=== PATIENT | female | born 1970 | race Caucasian/White ===

== ENCOUNTER 2021-05-15 22:36 | Observation (INO) | payer MEDICARE ==
[~2021-05-15] VITALS: Ht 170.2 cm; Wt 51.9 kg
--- NOTE | 2021-05-15 23:14 | ED.ADGEN ---
General Adult EDM: Chief Complaint: ALTERED MENTAL STATUS HPI: HPI: Patient is a 50 year old female brought in by EMS. 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 Patient just arrived from [place] over the last 3 days. History is severely limited by patient's recollection. Patient has a history of paranoia, TBI, and has her medications with her. Patient denies any SI, HI, or hallucinations. Patient has had episodes like this in the past but not for quite a while. She denies any drug or alcohol use Review of Systems: Review of Systems: All other systems within normal limits except for as noted in the HPI Allergies: Allergies: Allergies Coded Allergies Type Severity Reaction Last Updated Verified No Known Drug Allergies 05/15/21 No Physical Exam: PE: Constitutional: Well developed, well nourished, no acute distress, non-toxic appearance. [] HENT: Normocephalic, atraumatic, bilateral external ears normal, nose normal. [] Eyes: PERRLA, conjunctiva normal, no discharge. [] Neck: No rigidity, supple, no stridor. [] Cardiovascular: Regular rate and rhythm, brisk cap refill [] Lungs & Thorax: Non labored symmetric respirations, no tachypnea or respiratory distress [] Abdomen: Soft, nondistended. Skin: Warm, dry, no erythema, no rash. [] Back: Unremarkable Extremities: No deformities, range of motion grossly intact, no lower extremity edema [] Neurologic: Alert and oriented X 3, no focal deficits noted. [] Psychologic: Normal speech pattern, confused, somber affect [] Current Patient Data: Labs: Laboratory Tests Test 05/15/21 23:05 05/15/21 23:56 05/16/21 00:11 White Blood Count 5.9 x10^3/uL (4.0-11.0) Red Blood Count 4.25 x10^6/uL (3.50-5.40) Hemoglobin 13.5 g/dL (12.0-15.5) Hematocrit 39.9 % (36.0-47.0) Mean Corpuscular Volume 94 fL (79-100) Mean Corpuscular Hemoglobin 32 pg (25-35) Mean Corpuscular Hemoglobin Concent 34 g/dL (31-37) Red Cell Distribution Width 13.0 % (11.5-14.5) Platelet Count 215 x10^3/uL (140-400) Neutrophils (%) (Auto) 75 % (31-73) H Lymphocytes (%) (Auto) 18 % (24-48) L Monocytes (%) (Auto) 7 % (0-9) Eosinophils (%) (Auto) 1 % (0-3) Basophils (%) (Auto) 0 % (0-3) Neutrophils # (Auto) 4.4 x10^3/uL (1.8-7.7) Lymphocytes # (Auto) 1.0 x10^3/uL (1.0-4.8) Monocytes # (Auto) 0.4 x10^3/uL (0.0-1.1) Eosinophils # (Auto) 0.0 x10^3/uL (0.0-0.7) Basophils # (Auto) 0.0 x10^3/uL (0.0-0.2) Sodium Level 139 mmol/L (136-145) Potassium Level 3.2 mmol/L (3.5-5.1) L Chloride Level 105 mmol/L (98-107) Carbon Dioxide Level 24 mmol/L (21-32) Anion Gap 10 (6-14) Blood Urea Nitrogen 8 mg/dL (7-20) Creatinine 0.9 mg/dL (0.6-1.0) Estimated GFR (Cockcroft-Gault) 66.3 BUN/Creatinine Ratio 9 (6-20) Glucose Level 110 mg/dL (70-99) H Calcium Level 9.2 mg/dL (8.5-10.1) Total Bilirubin 0.4 mg/dL (0.2-1.0) Aspartate Amino Transferase (AST) 17 U/L (15-37) Alanine Aminotransferase (ALT) 28 U/L (14-59) Alkaline Phosphatase 69 U/L (46-116) Total Protein 7.1 g/dL (6.4-8.2) Albumin 3.8 g/dL (3.4-5.0) Albumin/Globulin Ratio 1.2 (1.0-1.7) Acetaminophen Level < 2 mcg/ml (10-30) L Acetaminophen Last Dose Date Unk Acetaminophen Last Dose Time Unk Ethyl Alcohol Level < 10 mg/dL (0-10) Urine Collection Type Unknown Urine Color Yellow Urine Clarity Clear Urine pH 7.0 (<5.0-8.0) Urine Specific [place] <=1.005 (1.000-1.030) Urine Protein Negative mg/dL (NEG-TRACE) Urine Glucose (UA) Negative mg/dL (NEG) Urine Ketones (Stick) Negative mg/dL (NEG) Urine Blood Negative (NEG) Urine Nitrite Negative (NEG) Urine Bilirubin Negative (NEG) Urine Urobilinogen Dipstick 0.2 mg/dL (0.2 mg/dL) Urine Leukocyte Esterase Small (NEG) Urine RBC 0 /HPF (0-2) Urine WBC 1-4 /HPF (0-4) Urine Squamous Epithelial Cells Few /LPF Urine Bacteria 0 /HPF (0-FEW) Urine Opiates Screen Neg (NEG) Urine Methadone Screen Neg (NEG) Urine Barbiturates Neg (NEG) Urine Phencyclidine Screen Neg (NEG) Urine Amphetamine/Methamphetamine Pos (NEG) Urine Benzodiazepines Screen Neg (NEG) Urine Cocaine Screen Neg (NEG) Urine Cannabinoids Screen Pos (NEG) Urine Ethyl Alcohol Neg (NEG) POC Urine HCG, Qualitative Hcg negative (Negative) Laboratory Tests 05/15/21 23:05 Laboratory Tests 05/15/21 23:05 Vital Signs: Vital Signs Date Time Temp Pulse Resp B/P (MAP) Pulse Ox O2 Delivery O2 Flow Rate FiO2 05/15/21 23:00 98.2 83 30 139/84 100 Room Air 98.2 EKG: EKG: Sinus rhythm, heart rate 70s per minute, normal axis, no ST elevation depression, no ectopy. Normal QTC [] Heart Score: C/O Chest Pain: No Risk Factors: Risk Factors: DM, Current or recent (<one month) smoker, HTN, HLP, family history of CAD, obesity. Risk Scores: Score 0 - 3: 2.5% MACE over next 6 weeks - Discharge Home Score 4 - 6: 20.3% MACE over next 6 weeks - Admit for Clinical Observation Score 7 - 10: 72.7% MACE over next 6 weeks - Early Invasive Strategies Radiology/Procedures: Radiology/Procedures: [facility] [address] [place], [place] [id number] IMAGING REPORT Signed PATIENT: ZE SEN ACCOUNT: [id number] : 1970 LOCATION: ER AGE: 50 SEX: F EXAM STATUS: REG ER ORD. PHYSICIAN: RAYSHAWN GAO MD REASON: delirium PROCEDURE: CT HEAD WO CONTRAST EXAMINATION: CT head without IV contrast INDICATION:50 years, Female, delirium. COMPARISON: None TECHNIQUE: Spiral acquisition of contiguous images from the skull base to the vertex were obtained. Sagittal and coronal 2D reformatted series were provided by the technologist. Soft tissue and bone window algorithms were reviewed. Exposure: One or more of the following individualized dose reduction techniques were utilized for this examination: 1. Automated exposure control 2. Adjustment of the mA and/or kV according to patient size 3. Use of iterative reconstruction technique. FINDINGS: Neither mass, midline shift, intracranial hemorrhage, acute/subacute ischemic changes, nor extraaxial fluid collections are seen. Postsurgical changes of left craniotomy. Left frontal lobe white matter diffuse hypodensities. There is a 0.9 cm hypodensity in the right basal ganglia. The ventricles are normal in size. The paranasal sinuses, mastoid air cells, and middle ears are clear.The orbital contents appear within normal limits. IMPRESSION: 1. Postsurgical changes of left craniotomy with diffuse left frontal lobe white matter hypodensities, may represent a chronic encephalomalacia from remote insult/surgery versus vasogenic edema. Consider correlation with patient's hist ory and recommend further evaluation with MRI brain without and with IV contrast. 2. Additional, indeterminate subcentimeter hypodensity in the right basal ganglia, suggesting of subacute/chronic infarct. This can be further evaluated by the recommended MRI. Electronically signed by: Zak Barger MD (05/16/2021 12:38 AM) [facility] DICTATED and SIGNED BY: ZAK BARGER MD DATE: 05/16/21 [id number] [] Course & Med Decision Making: Course & Med Decision Making Pertinent Labs and Imaging studies reviewed. (See chart for details) After PAT evaluation she does not meet criteria for psych inpatient. Still waiting for her brother to fly out from [place]. Will admit for delirium and concerning CT findings for possible neuro consult and MRI. [] Checo Disclaimer: Checo Disclaimer: This electronic medical record was generated, in whole or in part, using a voice recognition dictation system. Departure Departure Impression: Primary Impression: Delirium Disposition: ADMITTED INPATIENT Condition: STABLE RAYHSAWN GAO MD May 15, 2021 23:14
[2021-05-15 23:34] LABS: BASO % 0 % (0-3); EOS % 1 % (0-3); HEMATOCRIT 39.9 % (36.0-47.0); HEMOGLOBIN 13.5 g/dL (12.0-15.5); LYMPH % 18 % (24-48); MEAN CORPUSCULAR HEMOGLOBIN 32 pg (25-35); MEAN CORPUSCULAR HGB CONC 34 g/dL (31-37); MEAN CORPUSCULAR VOLUME 94 fL (79-100); MONO # 0.4 x10^3/uL (0.0-1.1); MONO % 7 % (0-9); NEUT # 4.4 x10^3/uL (1.8-7.7); NEUT % 75 % (31-73); PLATELET COUNT 215 x10^3/uL (140-400); RED BLOOD COUNT 4.25 x10^6/uL (3.50-5.40); WHITE BLOOD COUNT 5.9 x10^3/uL (4.0-11.0)
[2021-05-15 23:42] LABS: CALCIUM 9.2 mg/dL (8.5-10.1); CREATININE 0.9 mg/dL (0.6-1.0); GFR 66.3; POTASSIUM 3.2 mmol/L (3.5-5.1)
[2021-05-15 23:45] LABS: ETHANOL < 10 mg/dL (0-10)
[2021-05-15 23:46] LABS: ACETAMIN < 2 mcg/ml (10-30)
[2021-05-15 23:47] LABS: ALBUMIN 3.8 g/dL (3.4-5.0); ALBUMIN/GLOBULIN RATIO 1.2 (1.0-1.7); TOTAL BILIRUBIN 0.4 mg/dL (0.2-1.0); TOTAL PROTEIN 7.1 g/dL (6.4-8.2)
[2021-05-16 00:15] LABS: BILIRUBIN,URINE NEGATIVE (NEG); CLARITY,URINE CLEAR; COLOR,URINE YELLOW; NITRITE,URINE NEGATIVE (NEG); PROTEIN,URINE NEGATIVE (NEG-TRACE); UROBILINOGEN,URINE 0.2 mg/dL (0.2 mg/dL)
[2021-05-16 00:21] LABS: BACTERIA,URINE 0 /HPF (0-FEW); RBC,URINE 0 /HPF (0-2)
[2021-05-16 00:22] LABS: BARBITURATES NEG (NEG); BENZODIAZEPINES NEG (NEG); CANNABINOIDS POS (NEG); COCAINE NEG (NEG); METHADONE NEG (NEG); OPIATES NEG (NEG); PHENCYCLIDINE NEG (NEG)
[2021-05-16 00:23] LABS: AMPHETAMINE/METHAMPHETAMINE POS (NEG)
--- NOTE | 2021-05-16 00:40 | RAD ---
EXAMINATION: CT head without IV contrast INDICATION:50 years, Female, delirium. COMPARISON: None TECHNIQUE: Spiral acquisition of contiguous images from the skull base to the vertex were obtained. S agittal and coronal 2D reformatted series were provided by the technologist. Soft tissue and bone win tati algorithms were reviewed. Exposure: One or more of the following individualized dose reduction techniques were utilized for thi s examination: 1. Automated exposure control 2. Adjustment of the mA and/or kV according to patient size 3. Use of iterative reconstruction technique. FINDINGS: Neither mass, midline shift, intracranial hemorrhage, acute/subacute ischemic changes, nor extraaxial fluid collections are seen. Postsurgical changes of left craniotomy. Left frontal lobe white matter diffuse hypodensities. There is a 0.9 cm hypodensity in the right basal ganglia. The ventricles are normal in size. The paranasal sinuses, mastoid air cells, and middle ears are clear.The orbital contents appear withi n normal limits. IMPRESSION: 1. Postsurgical changes of left craniotomy with diffuse left frontal lobe white matter hypodensities , may represent a chronic encephalomalacia from remote insult/surgery versus vasogenic edema. Conside r correlation with patient's history and recommend further evaluation with MRI brain without and with IV contrast. 2. Additional, indeterminate subcentimeter hypodensity in the right basal ganglia, suggesting of sub acute/chronic infarct. This can be further evaluated by the recommended MRI. Electronically signed by: Norberto Barger MD (05/16/2021 12:38 AM) [facility]
[2021-05-16] MEDS ORDERED: ACETAMINOPHEN 325 MG TABLET. PO PRN ×2 (01:00→07:45)
[2021-05-16] MEDS ORDERED: MORPHINE SULFATE 2 MG/ML INJ. IV PRN (01:00)
[2021-05-16] MEDS ORDERED: ONDANSETRON PF 4 MG/2 ML VIAL. IV PRN (01:00)
[2021-05-16 02:19] VITALS: BP 129/79
--- NOTE | 2021-05-16 03:00 | NUR ---
The patient, ZE SEN, 50 y/o, F admitted by DORYS STOKES MD, was given written information regarding hospital policies, unit procedures and contact persons. Pt arrived to unit per wheelchair pt ambulated to bed from wheelchair with standby assistance,vital signs obtained and stable pt denied pain. Assessment completed pt alert and oriented x4 but forgetful pt is slow to respond to questions due to TBI. Pt unable to list all medications will call pt pharmacy for correct medication list. Pt stated she is here visiting and can't recall how she got here. Will resume care and continue to monitor pt. Bed alarm is set and call light in reach. Pt has some home medications with her at bedside and is awaiting brother to arrive to take medications.
[2021-05-16] MEDS ORDERED: FLUO20CA16 PO (04:12)
[2021-05-16] MEDS ORDERED: TOPI200T25 PO (04:12)
[2021-05-16] MEDS ORDERED: DEXT10TA23 PO (04:12)
[2021-05-16] MEDS ORDERED: LORA-434 PO (04:12)
--- NOTE | 2021-05-16 05:33 | EKG ---
[facility] [address] [place] [address] Test Date: 2021-05-15 Test Time: 23:19:44 Pat Name: ZE SEN Department: Room: Gender: F Production Control Coordinator: : 1970 Requested By: RAYSHAWN GAO Order Number: [id number] Reading MD: Measurements Intervals [place] Rate: 76 P: 72 TN: 144 QRS: 59 QRSD: 92 T: 52 QT: 392 QTc: 440 Interpretive Statements SINUS RHYTHM LEFT ATRIAL ABNORMALITY ABNORMAL ECG RI6.02 No previous ECG available for comparison
[2021-05-16 07:00] VITALS: BP 132/83
--- NOTE | 2021-05-16 07:38 | PDOC1 ---
History and Physical Date of Service: DOS: DATE: 05/16/21 TIME: 07:35 Chief Complaint: Chief Complain: Altered mental status. 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 Patient stated that she was trying to find a hotel. Patient is also accompanied by her brother who is able to provide some past medical history. Patient states that she is coming from [place] where she drove over the last 3 days and came to [place] looking to find a new place to live. Patient also has a history of paranoia and she takes Adderall. Patient s tates that she has episodes of loss of consciousness in the before confusion but not in a long time. Denies fevers, headaches, syncope, palpitations, chest pain, abdominal pain, dysuria or diarrhea. Patient states that she has had her neurostimulator interrogated maybe a few years ago. Past Medical/Surgical History: PMH/PSH: Limited by patient's altered mental status Allergies: Allergies: Coded Allergies: Penicillins (Verified Allergy, Intermediate, Rash, 05/16/21) Family History: Family History: Unable to obtain due to patient's altered mental status Social History: Social History: Positive for alcohol and cannabinoid use Current Medications: Current Medications Current Medications Ondansetron HCl (Zofran) 4 mg PRN Q8HRS PRN IV NAUSEA/VOMITING 1ST CHOICE; Start 05/16/21 at 01:00; Stop 05/17/21 at 00:59 Morphine Sulfate (Morphine Sulfate) 2 mg PRN Q2HR PRN IV SEVERE PAIN 7-10; Start 05/16/21 at 01:00; Stop 05/17/21 at 00:59 Acetaminophen (Tylenol) 650 mg PRN Q4HRS PRN PO FEVER > 100.3'F; Start 05/16/21 at 01:00; Stop 05/17/21 at 00:59 Active Scripts Active Reported Topamax (Topiramate) 200 Mg Tablet 1 Tab PO BID 30 Days Prozac (Fluoxetine Hcl) 20 Mg Capsule 1 Cap PO HS Ativan (Lorazepam) 1 Mg Tablet 1 Mg PO HS Adderall 10 Mg Tablet (Dextroamphetamine/Amphetamine) 10 Mg Tablet 1 Tab PO BID MDD 2 Tablet(s) 5 Days ROS: Review of Systems Unable to obtain due to patient's altered mental status Physical Exam: Vital Signs: Vital Signs Date Time Temp Pulse Resp B/P (MAP) Pulse Ox O2 Delivery O2 Flow Rate FiO2 05/16/21 02:39 Room Air 05/16/21 02:19 98.8 70 16 129/79 (96) 99 98.8 Physcial Exam: General: Well developed, well nourished, no acute distress, well appearing HEENT: Pupils equally round and reactive to light, EOMI, no discharge, normal conjunctiva Neck: Supple, no nuchal rigidity, no JVD, trachea midline, no tenderness Cardiac: RRR, no murmurs, no gallops, no rubs Chest/Lungs: CTAB, no wheeze, no rhonchi, no crackles neurostimulator intact. No signs of infection or erythema. Abdomen: soft, non-distended, no guarding, no peritoneal signs, non-tender Back: No tenderness Extremities: no edema, pulses intact, non-tender,capillary refill <3 sec bilateral upper and lower extremities, Neuro: Alert and oriented x 4, no focal deficits, normal speech Labs: Labs: Laboratory Tests Test 05/15/21 23:05 05/15/21 23:56 05/16/21 00:11 White Blood Count 5.9 x10^3/uL (4.0-11.0) Red Blood Count 4.25 x10^6/uL (3.50-5.40) Hemoglobin 13.5 g/dL (12.0-15.5) Hematocrit 39.9 % (36.0-47.0) Mean Corpuscular Volume 94 fL (79-100) Mean Corpuscular Hemoglobin 32 pg (25-35) Mean Corpuscular Hemoglobin Concent 34 g/dL (31-37) Red Cell Distribution Width 13.0 % (11.5-14.5) Platelet Count 215 x10^3/uL (140-400) Neutrophils (%) (Auto) 75 % (31-73) Lymphocytes (%) (Auto) 18 % (24-48) Monocytes (%) (Auto) 7 % (0-9) Eosinophils (%) (Auto) 1 % (0-3) Basophils (%) (Auto) 0 % (0-3) Neutrophils # (Auto) 4.4 x10^3/uL (1.8-7.7) Lymphocytes # (Auto) 1.0 x10^3/uL (1.0-4.8) Monocytes # (Auto) 0.4 x10^3/uL (0.0-1.1) Eosinophils # (Auto) 0.0 x10^3/uL (0.0-0.7) Basophils # (Auto) 0.0 x10^3/uL (0.0-0.2) Sodium Level 139 mmol/L (136-145) Potassium Level 3.2 mmol/L (3.5-5.1) Chloride Level 105 mmol/L (98-107) Carbon Dioxide Level 24 mmol/L (21-32) Anion Gap 10 (6-14) Blood Urea Nitrogen 8 mg/dL (7-20) Creatinine 0.9 mg/dL (0.6-1.0) Estimated GFR (Cockcroft-Gault) 66.3 BUN/Creatinine Ratio 9 (6-20) Glucose Level 110 mg/dL (70-99) Calcium Level 9.2 mg/dL (8.5-10.1) Total Bilirubin 0.4 mg/dL (0.2-1.0) Aspartate Amino Transf (AST/SGOT) 17 U/L (15-37) Alanine Aminotransferase (ALT/SGPT) 28 U/L (14-59) Alkaline Phosphatase 69 U/L (46-116) Total Protein 7.1 g/dL (6.4-8.2) Albumin 3.8 g/dL (3.4-5.0) Albumin/Globulin Ratio 1.2 (1.0-1.7) Acetaminophen Level < 2 mcg/ml (10-30) Acetaminophen Last Dose Date Unk Acetaminophen Last Dose Time Unk Ethyl Alcohol Level < 10 mg/dL (0-10) Urine Collection Type Unknown Urine Color Yellow Urine Clarity Clear Urine pH 7.0 (<5.0-8.0) Urine Specific [place] <=1.005 (1.000-1.030) Urine Protein Negative mg/dL (NEG-TRACE) Urine Glucose (UA) Negative mg/dL (NEG) Urine Ketones (Stick) Negative mg/dL (NEG) Urine Blood Negative (NEG) Urine Nitrite Negative (NEG) Urine Bilirubin Negative (NEG) Urine Urobilinogen Dipstick 0.2 mg/dL (0.2 mg/dL) Urine Leukocyte Esterase Small (NEG) Urine RBC 0 /HPF (0-2) Urine WBC 1-4 /HPF (0-4) Urine Squamous Epithelial Cells Few /LPF Urine Bacteria 0 /HPF (0-FEW) Urine Opiates Screen Neg (NEG) Urine Methadone Screen Neg (NEG) Urine Barbiturates Neg (NEG) Urine Phencyclidine Screen Neg (NEG) Urine Amphetamine/Methamphetamine Pos (NEG) Urine Benzodiazepines Screen Neg (NEG) Urine Cocaine Screen Neg (NEG) Urine Cannabinoids Screen Pos (NEG) Urine Ethyl Alcohol Neg (NEG) Bedside Urine HCG, Qualitative Hcg negative (Negative) Laboratory Tests Test 05/15/21 23:05 05/15/21 23:56 05/16/21 00:11 White Blood Count 5.9 x10^3/uL (4.0-11.0) Red Blood Count 4.25 x10^6/uL (3.50-5.40) Hemoglobin 13.5 g/dL (12.0-15.5) Hematocrit 39.9 % (36.0-47.0) Mean Corpuscular Volume 94 fL (79-100) Mean Corpuscular Hemoglobin 32 pg (25-35) Mean Corpuscular Hemoglobin Concent 34 g/dL (31-37) Red Cell Distribution Width 13.0 % (11.5-14.5) Platelet Count 215 x10^3/uL (140-400) Neutrophils (%) (Auto) 75 % (31-73) Lymphocytes (%) (Auto) 18 % (24-48) Monocytes (%) (Auto) 7 % (0-9) Eosinophils (%) (Auto) 1 % (0-3) Basophils (%) (Auto) 0 % (0-3) Neutrophils # (Auto) 4.4 x10^3/uL (1.8-7.7) Lymphocytes # (Auto) 1.0 x10^3/uL (1.0-4.8) Monocytes # (Auto) 0.4 x10^3/uL (0.0-1.1) Eosinophils # (Auto) 0.0 x10^3/uL (0.0-0.7) Basophils # (Auto) 0.0 x10^3/uL (0.0-0.2) Sodium Level 139 mmol/L (136-145) Potassium Level 3.2 mmol/L (3.5-5.1) Chloride Level 105 mmol/L (98-107) Carbon Dioxide Level 24 mmol/L (21-32) Anion Gap 10 (6-14) Blood Urea Nitrogen 8 mg/dL (7-20) Creatinine 0.9 mg/dL (0.6-1.0) Estimated GFR (Cockcroft-Gault) 66.3 BUN/Creatinine Ratio 9 (6-20) Glucose Level 110 mg/dL (70-99) Calcium Level 9.2 mg/dL (8.5-10.1) Total Bilirubin 0.4 mg/dL (0.2-1.0) Aspartate Amino Transf (AST/SGOT) 17 U/L (15-37) Alanine Aminotransferase (ALT/SGPT) 28 U/L (14-59) Alkaline Phosphatase 69 U/L (46-116) Total Protein 7.1 g/dL (6.4-8.2) Albumin 3.8 g/dL (3.4-5.0) Albumin/Globulin Ratio 1.2 (1.0-1.7) Acetaminophen Level < 2 mcg/ml (10-30) Acetaminophen Last Dose Date Unk Acetaminophen Last Dose Time Unk Ethyl Alcohol Level < 10 mg/dL (0-10) Urine Collection Type Unknown Urine Color Yellow Urine Clarity Clear Urine pH 7.0 (<5.0-8.0) Urine Specific [place] <=1.005 (1.000-1.030) Urine Protein Negative mg/dL (NEG-TRACE) Urine Glucose (UA) Negative mg/dL (NEG) Urine Ketones (Stick) Negative mg/dL (NEG) Urine Blood Negative (NEG) Urine Nitrite Negative (NEG) Urine Bilirubin Negative (NEG) Urine Urobilinogen Dipstick 0.2 mg/dL (0.2 mg/dL) Urine Leukocyte Esterase Small (NEG) Urine RBC 0 /HPF (0-2) Urine WBC 1-4 /HPF (0-4) Urine Squamous Epithelial Cells Few /LPF Urine Bacteria 0 /HPF (0-FEW) Urine Opiates Screen Neg (NEG) Urine Methadone Screen Neg (NEG) Urine Barbiturates Neg (NEG) Urine Phencyclidine Screen Neg (NEG) Urine Amphetamine/Methamphetamine Pos (NEG) Urine Benzodiazepines Screen Neg (NEG) Urine Cocaine Screen Neg (NEG) Urine Cannabinoids Screen Pos (NEG) Urine Ethyl Alcohol Neg (NEG) Bedside Urine HCG, Qualitative Hcg negative (Negative) Images: Images PROCEDURE: CT HEAD WO CONTRAST IMPRESSION: 1. Postsurgical changes of left craniotomy with diffuse left frontal lobe white matter hypodensities, may represent a chronic encephalomalacia from remote insult/surgery versus vasogenic edema. Consider correlation with patient's history and recommend further evaluation with MRI brain without and with IV c ontrast. 2. Additional, indeterminate subcentimeter hypodensity in the right basal ganglia, suggesting of subacute/chronic infarct. This can be further evaluated by the recommended MRI. Assessment/Plan Assessment/Plan Acute metabolic and toxic encephalopathy Positivity for methamphetamine and cannabinoidpatient does take Adderall History of left craniotomy with neurostimulator in place History of ruptured AVM History of seizures currently on topiramate Admit to hospital service for further management Neurology consult SCD and ambulation for DVT prophylaxis Regular diet Full code Discussed with RN and SW Disposition patient management as above Surrogate decision maker is brother Justifications for Admission Other Justification DORYS STOKES MD May 16, 2021 07:38
[2021-05-16] MEDS ORDERED: ONDANSETRON PF 4 MG/2 ML VIAL. IVP PRN (07:45)
[2021-05-16] MEDS ORDERED: SENNOSIDES 8.6 MG TABLET PO PRN (07:45)
[2021-05-16] MEDS ORDERED: DEXTROSE 50% 25 GM / 50ML DISP.SYRIN. IV PRN (07:45)
[2021-05-16] MEDS ORDERED: PROCHLORPERAZINE 10 MG/2 ML VIAL. IV PRN (07:45)
[2021-05-16] MEDS ORDERED: DOCUSATE SODIUM 100 MG CAPSULE. PO PRN (07:45)
[2021-05-16] MEDS ORDERED: DEXTROAMPHETAMINE PO SCH (09:00)
[2021-05-16] MEDS ORDERED: AMPHETAMINE PO SCH (09:00)
[2021-05-16] MEDS ORDERED: FOLIC ACID 1 MG TABLET. PO SCH (09:00)
[2021-05-16] MEDS ORDERED: TOPIRAMATE 100 MG TABLET. PO SCH (09:00)
[2021-05-16] MEDS ORDERED: THIAMINE 100 MG TABLET. PO SCH (09:00)
[2021-05-16 11:00] VITALS: BP 138/69
--- NOTE | 2021-05-16 14:19 | NUR ---
SS following for discharge planning. SS reviewed pt chart and discussed with pt RN. Pt is from [place] and has been in [place] looking for property. Pt is currently on room air. CT of head today. Neurology consulted. Pt's sons here to assist with pt care. Pt positive for Marijuana. Records being requested from [place]. SS will continue to follow for discharge planning.
[2021-05-16 15:00] VITALS: BP 161/81
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
[2021-05-16] MEDS ORDERED: FLUoxetine HCL 20 MG CAPSULE PO SCH (21:00)
== END 2021-05-16 18:15 | disposition home or self-care (01) ==
LOC: ER 22:36 → 2 SOUTH 05-16 00:40
PROVIDERS: ADMIT Internal Medicine; ATTEND Internal Medicine
DX: G92 Toxic encephalopathy (principal); R41.82 Altered mental status, unspecified; F22 Delusional disorders; F12.90 Cannabis use, unspecified, uncomplicated; F15.90 Other stimulant use, unspecified, uncomplicated; G40.909 Epilepsy, unspecified, not intractable, without status epilepticus; Z96.82 Presence of neurostimulator; Z72.89 Other problems related to lifestyle
CPT/HCPCS: 36415; 70450; 80053; 80307; 80329; 81001; 81025; 85025; 87086; 93005; 99285; G0378; G0480; G0379